=== PATIENT | male | born 1955 | race Caucasian/White ===

== ENCOUNTER → 2021-02-11 | Day surgery (SDC) | payer MEDICARE, OTHER ==
[~2021-02-11] MED LIST: ASPIRIN325 PO; CRESTOR10 MG PO; FUROSEMIDE 40 M40 MG PO; LOTENSIN10 MG PO; METFORMIN HCL500 M3 PO; NIACIN500 M3 PO; POTASSIUM20 PO; TOPROL XL25 MG PO
--- NOTE | ~2021-02-11 | PROC ---
[address] [address] PROCEDURE REPORT Name: YUMI KEENAN Room: [facility]#: [id number] Admission: 02/11/21 Attend Phys: Gregory Zuleta DO Discharge: Date of : 53 Report #: [id number] THIS REPORT FOR: cc: Sydney Cornejo MD, Allison Louise MD ~ [facility],Medical Records Staff For GI report, please see the Provation report in Perceptive 7 content. By: [id number] Records Staff FORTINO /ISRRAEL
[2021-02-11 09:22] LABS: HEMATOCRIT 46.8 % (42.0-52.0); HEMOGLOBIN 15.6 gm/dL (14.0-18.0); MCH 32.8 pg (26.0-34.0); MCHC 33.3 g/dL (28.0-37.0); MCV 98.6 fL (80.0-100.0); MPV 6.9 fl. (7.2-11.1); RBC 4.74 mil/uL (4.50-6.00); RDW-CV 14.7 % (10.5-14.5); WBC 9.6 thou/uL (4.0-11.0)
[2021-02-11 09:37] LABS: CALCIUM 9.4 mg/dL (8.5-10.1); CREATININE 1.2 mg/dL (0.6-1.3)
[2021-02-11 09:42] LABS: TOTAL BILIRUBIN 0.6 mg/dL (<0.1-1.0); TOTAL PROTEIN 8.7 g/dL (6.4-8.2)
--- NOTE | 2021-02-11 10:59 | EKG ---
[place] [address] ELECTROCARDIOGRAM REPORT Name: YUMI KEENAN Room: [facility]#: [id number] Admission: 02/11/21 Attend Phys: Gregory Zuleta, Discharge: Date of : 53 Date of Service: 02/11/21920 Report #: [id number] THIS REPORT FOR: //name// [facility] Test Date: 2021-02-11 Test Time: 09:21:43 Pat Name: YUMI KEENAN Department: Room: Gender: Resolution Expert: : 1955 Requested By: Gregory Zuleta Order Number: [id number] Navi MD: Drew Zabala Measurements Intervals [place] Rate: 75 P: 43 ME: 176 QRS: 4 QRSD: 104 T: QT: 415 QTc: 464 Interpretive Statements Sinus rhythm Anterior infarct (age indeterminate) ST-T abnormalities compatible with the antecedent ischemic event No previous ECG available for comparison Electronically Signed On 02-11-2021 10:59:40 CDT by Drew Zabala [email or web address] <ELECTRONICALLY SIGNED> By: Drew Zabala MD, [facility] 02/11/21 1059 0 0 Drew Zabala MD, [facility] /EPI
== END | disposition home or self-care (01) ==
LOC: M.SUR 06:31
PROVIDERS: ATTEND Internal Medicine Gastroenterology
DX: Z12.11 Encounter for screening for malignant neoplasm of colon (principal); K44.9 Diaphragmatic hernia without obstruction or gangrene; I25.5 Ischemic cardiomyopathy; I10 Essential (primary) hypertension; I73.9 Peripheral vascular disease, unspecified; E11.9 Type 2 diabetes mellitus without complications; E78.00 Pure hypercholesterolemia, unspecified; Z79.82 Long term (current) use of aspirin; Z95.810 Presence of automatic (implantable) cardiac defibrillator; Z85.01 Personal history of malignant neoplasm of esophagus; Z86.010 Personal history of colon polyps; Z79.899 Other long term (current) drug therapy; Z86.73 Personal history of transient ischemic attack (TIA), and cerebral infarction without residual deficits; Z98.890 Other specified postprocedural states
CPT/HCPCS: 43235; G0105

== ENCOUNTER → 2021-02-15 | Outpatient (CLI) | payer MEDICARE, OTHER ==
[~2021-02-15] MED LIST changes: +NORCO5 PO
== END ==
LOC: M.LAB 08:54
PROVIDERS: ATTEND Surgery
DX: Z01.812 Encounter for preprocedural laboratory examination (principal); Z20.822 Contact with and (suspected) exposure to COVID-19

== ENCOUNTER → 2021-02-18 | Day surgery (SDC) | payer MEDICARE, OTHER ==
--- NOTE | ~2021-02-18 | OP ---
[facility] [address] [place] [address] OPERATIVE REPORT Name: YUMI KEENAN Room: [facility]#: [id number] Admission: 02/18/21 Attend Phys: Julio Hutchison Discharge: Date of : 53 Report #: [id number] THIS REPORT FOR: cc: Sydney Cornejo MD, Allison Louise MD Patterson,Julio De La Cruz MD ~ DATE OF SERVICE: 02/18/2021 PREOPERATIVE DIAGNOSIS: Bilateral inguinal hernias. POSTOPERATIVE DIAGNOSIS: Left inguinal hernia. OPERATION: Laparoscopic repair of left inguinal hernia with mesh. SURGEON: Julio Hutchison MD ANESTHESIA: General. ESTIMATED BLOOD LOSS: Minimal. SPECIMEN: None. DESCRIPTION OF PROCEDURE: After informed consent was obtained, the patient was brought to the operating room and placed supine. SCDs were placed and working, preoperative antibiotics were administered, general anesthesia was induced. The abdomen was prepped and draped in the usual sterile fashion and a Goodrich catheter was placed. A 10 mm incision was made below the umbilicus. Fascia was incised and a trocar was placed. Pneumoperitoneum was established. Left and right lower quadrant 5 mm ports were placed. The abdomen was examined. The right side did not have a hernia. The left side had a very large hernia with a segment of sigmoid colon incarcerated. The colon was able to be fully reduced. I incised the peritoneum at the left ASIS. Peritoneum was then incised and reflected inferiorly. I was able to dissect out the very large hernia sac and the colon. I identified the cord structures. The pubic bone was identified. An extra-large piece of Bard 3DMax mid-weight mesh was inserted. It was tacked to Jez's ligament with 2 absorbable tacks. I then reapproximated the peritoneum with a running 2-0 V-Loc suture. The area was instilled with 10 mL of 0.5% Marcaine. The ports were then removed under direct vision. The fascia at the umbilicus was closed with a yeuqoc-di-mapjh 0 Vicryl. Skin was closed with 4-0 Monocryl. Incisions were sealed [place] [address] OPERATIVE REPORT Name: YUMI KEENAN Room: [facility]#: [id number] Admission: 02/18/21 Attend Phys: Julio Hutchison Discharge: Date of : 53 Report #: [id number] COMPLICATIONS: None. DISPOSITION: The patient was taken to recovery in satisfactory condition. By: [id number] Hutchison MD /nt
== END | disposition home or self-care (01) ==
LOC: M.SUR 06:42
PROVIDERS: ATTEND Surgery
DX: K40.30 Unilateral inguinal hernia, with obstruction, without gangrene, not specified as recurrent (principal); I10 Essential (primary) hypertension; E78.5 Hyperlipidemia, unspecified; Z98.890 Other specified postprocedural states; Z79.899 Other long term (current) drug therapy

== ENCOUNTER → 2021-05-31 | Day surgery (SDC) | payer MEDICARE, OTHER ==
[2021-05-31 08:46] LABS: HEMATOCRIT 42.9 % (42.0-52.0); HEMOGLOBIN 14.6 gm/dL (14.0-18.0); MCH 33.1 pg (26.0-34.0); MCV 97.5 fL (80.0-100.0); MPV 6.8 fl. (7.2-11.1); RBC 4.4 mil/uL (4.50-6.00); RDW-CV 14.1 % (10.5-14.5); WBC 8.5 thou/uL (4.0-11.0)
[2021-05-31 08:54] LABS: CALCIUM 8.7 mg/dL (8.5-10.1); CREATININE 1.2 mg/dL (0.6-1.3); POTASSIUM 3.8 mmol/L (3.5-5.1)
== END | disposition home or self-care (01) ==
LOC: M.SUR 05:45
PROVIDERS: ATTEND Internal Medicine Gastroenterology
DX: Z12.11 Encounter for screening for malignant neoplasm of colon (principal); Z86.010 Personal history of colon polyps; K57.30 Diverticulosis of large intestine without perforation or abscess without bleeding; K64.4 Residual hemorrhoidal skin tags; I10 Essential (primary) hypertension; I25.2 Old myocardial infarction; E11.9 Type 2 diabetes mellitus without complications; I48.91 Unspecified atrial fibrillation; I25.10 Atherosclerotic heart disease of native coronary artery without angina pectoris; Z85.01 Personal history of malignant neoplasm of esophagus; Z79.899 Other long term (current) drug therapy; Z98.890 Other specified postprocedural states